=== PATIENT | male | born 1980 | race Caucasian/White ===

== ENCOUNTER 2017-06-22 15:13 | Inpatient (IN) | payer SELFPAY ==
[~2017-06-22 15:13] MED LIST: Heparin 10,000 UNITS/ 10 ML VIAL ONE; Iopamidol 370 76% 100 ML VIAL ONE; Iopamidol 370 76% 50 ML VIAL FS ONE
[2017-06-22] MEDS ORDERED: Ondansetron HCl/PF 4 MG/2 ML Vial ONE (15:18)
[2017-06-22] MEDS ORDERED: Morphine 2 mg/2ml in 0.9% NaCl PF SYRINGE ONE (15:29)
[2017-06-22 15:48] LABS: #Basophils 0.2 thou/uL (0.0-0.2); #Eosinphils 0.1 thou/uL (0.0-0.7); #Lymphocytes 4.2 thou/uL (1.20-3.40); #Monocytes 0.8 thou/uL (0.11-0.59); #Neutrophils 10.9 thou/uL (1.40-6.50); %Eosinophils 0.9 % (0.0-10.0); %Lymphocytes 25.8 % (21.0-51.0); %Monocytes 5.2 % (0.0-10.0); Hematocrit 54.2 % (42.0-52.0); Mean Platelet Volume 7.4 fL (7.4-10.4); Red Blood Cell (RBC) Count 5.89 mill/uL (4.70-6.10); White Blood Cell (WBC) Count 16.3 thou/uL (4.8-10.8)
[2017-06-22] MEDS ORDERED: Atropine Sulfate 1 mg/1 ml Vial ONE (15:48)
[2017-06-22] MEDS ORDERED: Atropine Sulfate 1 mg/10 ml Syringe ONE (15:49)
[2017-06-22] MEDS ORDERED: Heparin 10,000 UNITS/1 ML VIAL ONE (15:50)
[2017-06-22] MEDS ORDERED: Nitroglycerin 100MG/250ML BOT 250 ML ONE (15:52)
[2017-06-22] MEDS ORDERED: Heparin 0 ML ONE (16:01)
[2017-06-22 16:02] LABS: ALT (SGPT) 15 U/L (8-55); AST (SGOT) 24 U/L (5-34); Alkaline Phosphatase 67 U/L (40-150); Anion Gap 17 mmol/L (10-20); BUN (Urea Nitrogen) Less than 4 mg/dL (8.9-20.6); Bilirubin, Total 0.9 mg/dL (0.2-1.2); CK (CPK) 125 U/L (30-200); Calc. Creatinine Clearance 0 mL/min (70-130); Calcium 9.3 mg/dL (7.8-10.44); Carbon Dioxide 23 mmol/L (22-29); Chloride 102 mmol/L (98-107); Estimated GFR-MDRD Greater than 90; Globulin 2.4 g/dL (2.4-3.5); Lipase 4 U/L (8-78); Protein, Total 6.3 g/dL (6.0-8.3)
[2017-06-22 16:04] LABS: Troponin I 0.074 ng/mL (< 0.028)
[2017-06-22] MEDS ORDERED: Clopidogrel Bisulfate 300 MG TAB ONE (16:07)
[2017-06-22] MEDS ORDERED: Sodium Chloride 0.9% 1,000 ML IV SCH (16:30)
--- NOTE | 2017-06-22 17:06 | HP ---
DATE OF ADMISSION: 06/22/2017 ADMITTING PHYSICIAN: Bernardo Singh M.D. CHIEF COMPLAINT: Acute myocardial infarction. HISTORY OF PRESENT ILLNESS: Mr. Ferrer is a 37-year-old white gentleman, who comes to the hospital fo r chest pain. He had been having chest pain for about an hour before presenting. He was trying to t vicky a nap and had a sudden onset of midsternal chest pain radiated to the left arm. He called EMS an d they did an EKG that showed inferior ST elevations, so STEMI pager was activated. On his arrival, Mr. Ferrer had 10/10 chest pain. A repeat EKG was done, it confirmed the findings, and he was taken e mergently to the catheterization lab where he was found to have an occluded RCA. As soon as the ball oon opened up the artery, he felt immediate relief of his symptoms and this was stented with a bare m etal stent. He has residual disease in an OM branch as well as RPL. PAST MEDICAL HISTORY: None. PAST SURGICAL HISTORY: None. MEDICATIONS: None. ALLERGIES: No known drug allergies. FAMILY HISTORY: Father of an GA in his 50s or 60s he is not sure. Otherwise, no other early co ronary artery disease. SOCIAL HISTORY: Denies any alcohol or drugs. He uses tobacco. He smokes about a pack a day since h luz was 16 years old. REVIEW OF SYSTEMS: A 12-point review of systems was done and is all negative unless stated in the hi story of present illness. PHYSICAL EXAMINATION: VITAL SIGNS: Temperature 97.2, pulse 58, respiratory rate 20, satting 98% on 2 liters, blood pressur e 105/60. GENERAL: Awake, alert, oriented x3, in no distress. HEENT: Normocephalic, atraumatic. NECK: Supple. LUNGS: Clear. CARDIOVASCULAR: S1, S2, no S3 or S4, no murmurs, no rubs. ABDOMEN: Soft, positive bowel sounds. EXTREMITIES: No edema. SKIN: Warm and dry. LABORATORY WORK: Pending at this time. EKG was reviewed. Inferior ST elevations with posterior changes as well and reciprocal changes in th e anterolateral leads. ASSESSMENT AND PLAN: 1. Acute inferoposterior myocardial infarction. 2. Tobacco abuse. PLAN: 1. He is status post bare metal stent to the RCA in the distal segment. He has already been loaded on Plavix. He will be started on aspirin and statin. 2. His blood pressure is borderline low, so TYRONE inhibitor and beta blockers will be held for now. 3. Statin drug has already been started. 4. Counseled on tobacco cessation about 10 minutes total. 5. FULL CODE. 6. PPI for stress ulcer prophylaxis. He is low risk for DVT, and after bed rest has been completed, ambulation will be started.
--- NOTE | 2017-06-22 17:07 | RAD ---
AP VIEW CHEST POST INTERVENTION RADIOGRAPH 06/22/17 HISTORY: 37-year-old male. AP view chest is obtained on 06/22/17. The lungs are well aerated. No evidence of active intrathoraci c disease seen. No evidence of effusions, pneumonia, or pneumothorax seen. IMPRESSION: Unremarkable AP view chest. POS: [facility]
[2017-06-22 17:23] VITALS: BMI 24.4
[2017-06-22] MEDS: Atorvastatin Calcium 40 MG TAB PO SCH (20:13)
[2017-06-22 23:03] LABS: Troponin I 28.531 ng/mL (< 0.028)
[2017-06-23 04:39] LABS: #Basophils 0.1 thou/uL (0.0-0.2); #Lymphocytes 3.1 thou/uL (1.20-3.40); #Monocytes 1.1 thou/uL (0.11-0.59); #Neutrophils 12.7 thou/uL (1.40-6.50); %Basophils 0.5 % (0.0-1.0); %Eosinophils 0.2 % (0.0-10.0); %Monocytes 6.4 % (0.0-10.0); Hematocrit 46.2 % (42.0-52.0); Mean Platelet Volume 7.2 fL (7.4-10.4); Red Blood Cell (RBC) Count 5.05 mill/uL (4.70-6.10)
[2017-06-23 04:52] LABS: ALT (SGPT) 29 U/L (8-55); AST (SGOT) 140 U/L (5-34); Alkaline Phosphatase 56 U/L (40-150); Anion Gap 11 mmol/L (10-20); BUN (Urea Nitrogen) 4 mg/dL (8.9-20.6); Bilirubin, Total 0.7 mg/dL (0.2-1.2); Calc. Creatinine Clearance 116 mL/min (70-130); Calcium 8.7 mg/dL (7.8-10.44); Carbon Dioxide 30 mmol/L (22-29); Chloride 106 mmol/L (98-107); Estimated GFR-MDRD 82; Globulin 1.7 g/dL (2.4-3.5); Protein, Total 5.1 g/dL (6.0-8.3)
[2017-06-23] MEDS ORDERED: traMADol HCl 50 MG TAB PO PRN (08:53)
[2017-06-23] MEDS ORDERED: Acetaminophen 325 MG TAB PO PRN (08:53)
[2017-06-23] MEDS ORDERED: Lidocaine 1% w/Epinephrine 1:200K 30 ML VIAL FS SCH (09:00)
[2017-06-23] MEDS ORDERED: Morphine 4 MG/ML VIAL ONE (10:39)
[2017-06-23] MEDS: Aspirin 325 MG TAB PO SCH (11:12)
[2017-06-23] MEDS: Clopidogrel Bisulfate 75 MG TAB PO SCH (11:12)
[2017-06-23] MEDS ORDERED: Morphine 4 MG/ML VIAL SLOW IVP SCH (12:45)
--- NOTE | 2017-06-23 12:56 | PDOC.CTH ---
Cardiology Progress Note - Subjective He has a lot of oozing from his cath site. No chest pain, tightness, pressure, SOB. - Objective Vital Signs Temp Pulse Resp Pulse Ox 06/23/17 11:00 98.3 F 06/23/17 08:49 96 06/23/17 08:00 98.2 F 49 L 16 99 06/23/17 07:00 98.2 F 06/23/17 04:00 98.7 F Weight 180 lb 06/22/17 06/23/17 06/24/17 06:59 06:59 06:59 Intake Total 1551.2 Output Total 0 350 Balance 1551.2 -350 - Physical Examination General/Neuro: alert & oriented x3, NAD Neck: no JVD present Lungs: CTA, unlabored respirations Heart: RRR Abdomen: NT/ND Extremities: other: (no edema.) - Telemetry Telemetry Rhythm: S Robert HR 40's to 50's. - Labs Result Diagrams: 06/23/17 04:18 06/23/17 04:18 Troponin/CKMB CK-MB (CK-2) 83.8 ng/mL (0-6.6) H* 06/22/17 22:24 Troponin I 28.531 ng/mL (< 0.028) H* 06/22/17 22:24 - Assessment/Plan 1. Acute inferior [place] 2. Tobacco abuse 3. Chronic back pain. PLAN: - No hematoma, I injected lidocaine with epinephrine and his bleeding seems to have stopped. - Continue Aspirin, plavix, statin. No BB due to low HR - Will start a very low dose ACEI. - Will transfer to floor today and if stable overnight may go home tomorrow morning.
[2017-06-23] MEDS: Atorvastatin Calcium 40 MG TAB PO SCH (21:30)
[2017-06-24 07:37] VITALS: BP 98/54; TEMP 98.2
[2017-06-24] MEDS: Aspirin 325 MG TAB PO SCH (08:56)
[2017-06-24] MEDS: Clopidogrel Bisulfate 75 MG TAB PO SCH (08:56)
--- NOTE | 2017-06-24 08:59 | DIS ---
DATE OF ADMISSION: 06/22/2017 DATE OF DISCHARGE: 06/24/2017 DISCHARGE DIAGNOSES: 1. Myocardial infarction. 2. Coronary artery disease. 3. Status post PTCA and stent placed in right coronary artery. 4. Tobacco abuse. This patient is a pleasant 37-year-old gentleman who presented with acute onset of substernal chest discomfort. He was noted to have ST elevation and taken emergently to the cardiac catheterization laboratory. HOSPITAL COURSE: On 06/22/2017, the patient underwent a left heart catheterization, he was found to have mild disease in the LAD, severe disease in the first obtuse marginal branch and severe disease in the posterior descending artery. The patient underwent PTCA and stent placement into the distal RCA. The patient's chest pain resolved. He remained free of chest pain throughout his hospitalization. The patient was treated with Plavix and aspirin. He was noted to have marked bradycardia, so he was not started on beta eddie therapy. The patient is discharged in stable condition. DISCHARGE MEDICATIONS: Aspirin 81 daily, Plavix 75 daily, Lipitor 80 at bedtime , nitroglycerin p.r.n. DISCHARGE INSTRUCTIONS: The patient has been highly advised to discontinue smoking. The patient will see Dr. Singh within 1 month. JAYE
--- NOTE | 2017-06-26 12:22 | EKG ---
Test Reason : Blood Pressure : / mmHG Vent. Rate : 046 BPM Atrial Rate : 046 BPM P-R Int : 148 ms QRS Dur : 086 ms QT Int : 472 ms P-R-T Axes : 059 079 -29 degrees QTc Int : 413 ms Marked sinus bradycardia T wave abnormality, consider inferior ischemia Abnormal ECG Confirmed by THI HENDRICKSON ([id number]) on 06/26/2017 12:21:59 PM Referred By: REYNALDO Confirmed By:THI HENDRICKSON
== END 2017-06-24 10:44 | disposition home or self-care (01) | DRG 249 ==
LOC: ERS 15:13 → SDC 15:50 → CCU 17:03 → 2NO 06-23 18:01
PROVIDERS: ADMIT Internal Medicine Cardiovascular Disease; ATTEND Internal Medicine Cardiovascular Disease
PROC: 02703DZ Dilation of Coronary Artery, One Artery with Intraluminal Device, Percutaneous Approach (ICD-10-PCS; principal; 2017-06-22)
PROC: 4A023N7 Measurement of Cardiac Sampling and Pressure, Left Heart, Percutaneous Approach (ICD-10-PCS; 2017-06-22)
PROC: B2111ZZ Fluoroscopy of Multiple Coronary Arteries using Low Osmolar Contrast (ICD-10-PCS; 2017-06-22)
PROC: B2151ZZ Fluoroscopy of Left Heart using Low Osmolar Contrast (ICD-10-PCS; 2017-06-22)
DX: I21.11 ST elevation (STEMI) myocardial infarction involving right coronary artery (principal); F17.210 Nicotine dependence, cigarettes, uncomplicated; I25.10 Atherosclerotic heart disease of native coronary artery without angina pectoris; Z82.49 Family history of ischemic heart disease and other diseases of the circulatory system
CPT/HCPCS: 36415; 71010; 80053; 82550; 82553; 83690; 84484; 85025; 85347; 92941; 93005; 93010; 93306; 93458; 94760; 96374; 96375; 99406; C1725; C1760; C1769; C1876; C1887; J0461; J1642; J1644; J2270; J2405

== ENCOUNTER 2017-07-07 18:20 | Inpatient (IN) | payer SELFPAY ==
[2017-07-07] MEDS ORDERED: Aspirin 325 MG TAB ONE (18:47)
[2017-07-07] MEDS ORDERED: Heparin 5,000 UNITS/ML VIAL ONE (18:47)
[2017-07-07] MEDS ORDERED: Nitroglycerin 50 MG/250 ML BOT 250 ML ONE (18:47)
[2017-07-07 18:56] LABS: Hemoglobin 18.5 g/dL (14.0-18.0); Mean Corpuscular HGB CONC 33.1 g/dL (32.0-36.0); Mean Corpuscular Hemoglobin 30.3 pg (27.0-31.0); Mean Corpuscular Volume 91.5 fl (80.0-94.0); Mean Platelet Volume 6.7 fL (7.4-10.4); Platelet Count 355 thou/uL (130-400); Red Blood Cell (RBC) Count 6.09 mill/uL (4.70-6.10); White Blood Cell (WBC) Count 21.3 thou/uL (4.8-10.8)
[2017-07-07 19:06] LABS: ALT (SGPT) 23 U/L (8-55); AST (SGOT) 21 U/L (5-34); Albumin 4.1 g/dL (3.5-5.0); Alkaline Phosphatase 67 U/L (40-150); Anion Gap 18 mmol/L (10-20); BUN (Urea Nitrogen) 8 mg/dL (8.9-20.6); Bilirubin, Total 0.4 mg/dL (0.2-1.2); CK (CPK) 148 U/L (30-200); Calc. Creatinine Clearance 0 mL/min (70-130); Calcium 9.2 mg/dL (7.8-10.44); Carbon Dioxide 23 mmol/L (22-29); Chloride 100 mmol/L (98-107); Estimated GFR-MDRD 88; Globulin 2.2 g/dL (2.4-3.5); Glucose 124 mg/dL (70-105); Protein, Total 6.3 g/dL (6.0-8.3); Sodium 138 mmol/L (136-145)
[2017-07-07 19:08] LABS: CKMB 3.6 ng/mL (0-6.6); Troponin I 0.107 ng/mL (< 0.028)
[2017-07-07 19:11] LABS: Potassium 2.8 mmol/L (3.5-5.1)
[2017-07-07 19:16] LABS: Band 1 % (5-11); Lymphocytes 19 % (21-51); MDiff Complete? YES; Monocytes 9 % (0-10); Neutrophil 71 % (42-75); PLT Morphology Comment Appears Adequate
[2017-07-07] MEDS ORDERED: Aggrastat 12.5 MG/250 ML 250 ML ONE (19:31)
[2017-07-07] MEDS ORDERED: Heparin 10,000 UNITS/1 ML VIAL ONE (19:31)
[2017-07-07] MEDS ORDERED: Atropine Sulfate 1 mg/10 ml Syringe ONE (19:33)
[2017-07-07] MEDS ORDERED: Clopidogrel Bisulfate 300 MG TAB ONE ×2 (20:36→20:37)
[2017-07-07] MEDS ORDERED: Zolpidem Tartrate 5 MG TAB PO PRN (20:44)
[2017-07-07] MEDS ORDERED: Acetaminophen/Codeine 30-300mg Tablet PO PRN (20:44)
[2017-07-07] MEDS ORDERED: Nitroglycerin 0.4 MG TAB 1 EACH SL PRN (20:44)
[2017-07-07] MEDS ORDERED: Milk Of Magnesia 30 ML UDCUP PO PRN (20:44)
[2017-07-07] MEDS ORDERED: Mag-Al 1200 mg/1200 mg/30 ML UDCUP PO PRN (20:44)
[2017-07-07] MEDS ORDERED: Aggrastat 12.5 MG/250 ML 250 ML IVPB SCH (20:45)
[2017-07-07] MEDS ORDERED: Atorvastatin Calcium 40 MG TAB PO SCH (21:00)
[2017-07-07 21:32] LABS: #Eosinphils 0.1 thou/uL (0.0-0.7); #Lymphocytes 2.1 thou/uL (1.20-3.40); #Monocytes 1.3 thou/uL (0.11-0.59); #Neutrophils 26.8 thou/uL (1.40-6.50); %Basophils 0.1 % (0.0-1.0); %Eosinophils 0.3 % (0.0-10.0); %Monocytes 4.3 % (0.0-10.0); %Neutrophils 88.3 % (42.0-75.0); Hemoglobin 16.7 g/dL (14.0-18.0); Mean Corpuscular HGB CONC 33.2 g/dL (32.0-36.0); Mean Corpuscular Hemoglobin 30.5 pg (27.0-31.0); Mean Corpuscular Volume 92.1 fl (80.0-94.0); Mean Platelet Volume 6.7 fL (7.4-10.4); Platelet Count 287 thou/uL (130-400); RBC Distribution Width 12.1 % (11.5-14.5); Red Blood Cell (RBC) Count 5.48 mill/uL (4.70-6.10); White Blood Cell (WBC) Count 30.3 thou/uL (4.8-10.8)
[2017-07-07] MEDS: Carvedilol 3.125 MG TAB PO SCH (22:14)
--- NOTE | 2017-07-07 23:53 | HP ---
INDICATION FOR ADMISSION: Acute inferior myocardial infarction. HISTORY OF PRESENT ILLNESS: This is a very unfortunate 37-year-old gentleman who was seen acutely on 06/22/2017 suffering an acute inferior myocardial infarction. He was taken emergently to the [facility] where he underwent the procedure and was found to have a totally occluded right coronary. This was opened and underwent stenting with a nondrug-coated stent. Unfortunately, the patient afte r discharge did not take his medications. Approximately an hour ago prior to being readmitted to the hospital in the emergency room, he again developed acute onset of chest pain. He had not been takin g his medications. An EKG indicates another inferior myocardial infarction. I suspect he slows down the stent with thrombus and he has continued to smoke also. PAST MEDICAL HISTORY: Unremarkable except for what is noted in the history of the present illness an d his previous myocardial infarction, angioplasty and stent placement. PAST SURGICAL HISTORY: Unremarkable. MEDICATIONS: At this time, he has not been taking his medication. He did occasionally take some asp irins in the last few days. ALLERGIES: None. FAMILY HISTORY: Father had myocardial infarctions in his 50s or 60s, otherwise no early cardiac dise ase in the family. SOCIAL HISTORY: He continues to use tobacco. He does mental health social worker. He denies any alcohol use or any illicit drug use. REVIEW OF SYSTEMS: Unremarkable except what was noted in the history of the present illness. He narayanan s have anxiety. PHYSICAL EXAMINATION: GENERAL: Reveals a thin gentleman who is in mild distress at this time due to continued chest pain. VITAL SIGNS: His heart rate at this time is approximately 60 beats per minute. EKG shows sinus rhyt hm with acute inferior myocardial infarction. HEENT: Unremarkable. CHEST: Clear to auscultation. CARDIOVASCULAR: Reveals a regular rate and rhythm. ABDOMINAL: Unremarkable. Positive bowel sounds are present. EXTREMITIES: Showed no clubbing or cyanosis. Pedal pulses are difficult to palpate. NEUROLOGIC: The patient is anxious, but otherwise alert and oriented. No acute changes were noted. IMPRESSION AND PLAN: Acute inferior myocardial infarction in this gentleman who recently underwent a ngioplasty and stent placement to the right coronary artery. At the time of the cardiac catheterizat ion, he also had a 40% left anterior descending artery in the mid section. First obtuse marginal bra nch of 65% stenosed and the distal right coronary was 100% occluded. The PDA had a 50% stenosis and posterolateral branch also had an 80% stenosis. At the time of the angioplasty and stent placement, he was implanted with a nondrug-coated stent. At this time, we will again take the patient to the [facility] emergently to undergo further evaluation, most likely he has a thrombus to the right c oronary artery due to lack of taking his medications.
[2017-07-08 02:13] LABS: Troponin I 30.135 ng/mL (< 0.028)
[2017-07-08] MEDS ORDERED: Acetaminophen/Codeine 30-300mg Tablet ONE (02:33)
[2017-07-08 03:44] LABS: #Basophils 0.1 thou/uL (0.0-0.2); #Eosinphils 0.1 thou/uL (0.0-0.7); #Lymphocytes 3.1 thou/uL (1.20-3.40); #Monocytes 1.6 thou/uL (0.11-0.59); #Neutrophils 15.8 thou/uL (1.40-6.50); %Basophils 0.4 % (0.0-1.0); %Eosinophils 0.3 % (0.0-10.0); %Lymphocytes 14.8 % (21.0-51.0); %Monocytes 7.5 % (0.0-10.0); %Neutrophils 76.9 % (42.0-75.0); Hemoglobin 16.2 g/dL (14.0-18.0); Mean Corpuscular HGB CONC 34.3 g/dL (32.0-36.0); Mean Corpuscular Hemoglobin 31.1 pg (27.0-31.0); Mean Corpuscular Volume 90.6 fl (80.0-94.0); Platelet Count 278 thou/uL (130-400); RBC Distribution Width 12.1 % (11.5-14.5); Red Blood Cell (RBC) Count 5.21 mill/uL (4.70-6.10); White Blood Cell (WBC) Count 20.6 thou/uL (4.8-10.8)
[2017-07-08 04:49] VITALS: BMI 35.2
[2017-07-08 07:26] LABS: ALT (SGPT) 49 U/L (8-55); AST (SGOT) 254 U/L (5-34); Albumin 3.4 g/dL (3.5-5.0); Alkaline Phosphatase 56 U/L (40-150); Anion Gap 13 mmol/L (10-20); BUN (Urea Nitrogen) 7 mg/dL (8.9-20.6); Bilirubin, Total 0.5 mg/dL (0.2-1.2); Calc. Creatinine Clearance 153 mL/min (70-130); Calcium 8.5 mg/dL (7.8-10.44); Carbon Dioxide 24 mmol/L (22-29); Chloride 105 mmol/L (98-107); Estimated GFR-MDRD Greater than 90; Globulin 1.8 g/dL (2.4-3.5); Glucose 101 mg/dL (70-105); Potassium 3.8 mmol/L (3.5-5.1); Protein, Total 5.2 g/dL (6.0-8.3); Sodium 138 mmol/L (136-145)
[2017-07-08] MEDS ORDERED: Lisinopril 2.5 MG TAB PO SCH (09:00)
[2017-07-08] MEDS ORDERED: Clopidogrel Bisulfate 75 MG TAB PO SCH (09:00)
[2017-07-08] MEDS ORDERED: Carvedilol 3.125 MG TAB ONE (09:02)
[2017-07-08] MEDS ORDERED: Lisinopril 2.5 MG TAB ONE (09:02)
[2017-07-08] MEDS ORDERED: Clopidogrel Bisulfate 75 MG TAB ONE (09:02)
[2017-07-08] MEDS: Carvedilol 3.125 MG TAB PO SCH (09:05)
[2017-07-08] MEDS ORDERED: Sodium Chloride 0.9% 10 ML ONE (09:07)
[2017-07-08 09:33] LABS: Troponin I 80.286 ng/mL (< 0.028)
[2017-07-08 12:28] VITALS: TEMP 98.5
[2017-07-08 14:31] VITALS: BP 111/48
--- NOTE | 2017-07-08 15:49 | EKG ---
Test Reason : Blood Pressure : / mmHG Vent. Rate : 059 BPM Atrial Rate : 059 BPM P-R Int : 098 ms QRS Dur : 084 ms QT Int : 424 ms P-R-T Axes : 062 084 078 degrees QTc Int : 419 ms Sinus bradycardia with short SD Possible Anterior infarct , age undetermined Inferior injury pattern ACUTE AR / STEMI Consider right ventricular involvement in acute inferior infarct Abnormal ECG Confirmed by VANESSA SHANNON, REY ([id number]), editor magazine VERONA COYLE ([id number]) on 07/08/2017 3:49:36 PM Referred By: Confirmed By:REY MENDEZ MD
--- NOTE | 2017-07-08 18:44 | DIS ---
DISCHARGE DIAGNOSES: 1. Status post myocardial infarction. 2. Tobacco abuse. 3. Anxiety. 4. Noncompliance. This unfortunate 37-year-old gentleman who presented with acute onset of substernal chest discomfort. He had recently suffered a myocardial infarction. He underwent PTCA and stent placement and was not taking his medications. He presented once again with recurrent chest pain and was noted to have ST elevation. He was taken emergently for cardiac catheterization. HOSPITAL COURSE: The patient underwent an emergent cardiac catheterization. He underwent PTCA and stent placement into the right coronary artery. The patient was monitored in the ICU, he was noted to have a peak troponin level of 80. The patient is adamant that he will not stay in the hospital. The life threatening consequences and the risk of life threatening arrhythmias have been explained in detail to the patient. Despite this risk, the patient refuses to commit to remain in the hospital. The patient also has in detail been explained the life threatening consequences of not taking aspirin and Plavix and it is also highly recommended that he also take Lipitor. He will be given prescriptions for these medications. The patient is signing out AMA. DISCHARGED MEDICATIONS: Aspirin 81 daily, Lipitor 80 mg 1/2 tablet daily, Plavix 75. MTDD
--- NOTE | 2017-07-13 19:41 | EKG ---
Test Reason : AM Blood Pressure : / mmHG Vent. Rate : 054 BPM Atrial Rate : 054 BPM P-R Int : 126 ms QRS Dur : 090 ms QT Int : 488 ms P-R-T Axes : 044 009 -50 degrees QTc Int : 462 ms Sinus bradycardia Inferior infarct , age undetermined Cannot rule out Anterior infarct , age undetermined Abnormal ECG When compared with ECG of 23-JUN-2017 07:29, Minimal criteria for Anterior infarct are now Present Inferior infarct is now Present T wave inversion more evident in Inferior leads Confirmed by MORAIMA RODRIGUEZ ([id number]) on 07/13/2017 7:41:00 PM Referred By: ANIL Confirmed By:MORAIMA RODRIGUEZ
== END 2017-07-08 17:57 | disposition left against medical advice (07) | DRG 249 ==
LOC: ERS 18:20 → SDC/OP 19:19 → PACU-TCU 20:44 → CCU 07-08 10:53
PROVIDERS: ADMIT Internal Medicine Cardiovascular Disease; ATTEND Internal Medicine Cardiovascular Disease
PROC: 02713EZ Dilation of Coronary Artery, Two Arteries with Two Intraluminal Devices, Percutaneous Approach (ICD-10-PCS; principal; 2017-07-07)
PROC: 4A023N7 Measurement of Cardiac Sampling and Pressure, Left Heart, Percutaneous Approach (ICD-10-PCS; 2017-07-07)
PROC: B2111ZZ Fluoroscopy of Multiple Coronary Arteries using Low Osmolar Contrast (ICD-10-PCS; 2017-07-07)
PROC: B2151ZZ Fluoroscopy of Left Heart using Low Osmolar Contrast (ICD-10-PCS; 2017-07-07)
DX: I22.1 Subsequent ST elevation (STEMI) myocardial infarction of inferior wall (principal); T82.855A Stenosis of coronary artery stent, initial encounter; T82.867A Thrombosis due to cardiac prosthetic devices, implants and grafts, initial encounter; F17.210 Nicotine dependence, cigarettes, uncomplicated; F41.9 Anxiety disorder, unspecified; Z91.14 Patient's other noncompliance with medication regimen; Z95.5 Presence of coronary angioplasty implant and graft; I21.19 ST elevation (STEMI) myocardial infarction involving other coronary artery of inferior wall; I25.10 Atherosclerotic heart disease of native coronary artery without angina pectoris
CPT/HCPCS: 36415; 80053; 82553; 84484; 85025; 85347; 86850; 86900; 86901; 92928; 92929; 93005; 93010; 93458; 93798; 94760; 96374; 96375; A4216; C1725; C1769; C1876; C1887; J0461; J1644; J3246